=== PATIENT | female | born 1965 | race Caucasian/White ===

== ENCOUNTER → 2016-11-20 | Outpatient (CLI) | payer BC ==
--- NOTE | ~2016-11-20 | US128 ---
[id number] [facility] [address] [place], [place] [address] [id number] O MR#: [id number] #: [id number] NAME: DARNELL HERNANDEZ : 1965 SEX: F STUDY DATE/TIME: 11/20/2016 14:07 UNIT: [facility] ROOM: STUDY DESCRIPTION: Thyroid Attending Physician: Jelena Mora M.D. Referring Physician: Jelena Mora M.D. Ordering Physician: eJlena Mora M.D. Primary Care Physician: Jelena Mora M.D. MEDICAL IMAGING REPORT This report is preliminary unless electronic signature is present EXAM Thyroid ultrasound 11/20/2016 INDICATION Thyroid nodule on MRI 2 weeks ago. Ultrasound requested for further assessment. TECHNIQUE Sonographic imaging of the thyroid gland was performed. [facility] FINDINGS Right thyroid lobe measures 1.7 x 1.6 x 4.4 cm and the left measures 1.6 x 1.6 x 4.6 cm. Thyroid isthmus measures 3-4 mm. Echogenicity appears within normal limits. Vascularity within normal limits. There is a tiny area of heterogeneous thyroid tissue versus a small solid nodule in the anterior inferior lower pole right thyroid lobe measuring 3 mm. In the left thyroid lobe, there is a small colloid cyst with a scant amount of debris within it in the lower pole. It measures 6 x 4 mm. IMPRESSION 1. 6 x 4 mm minimally complicated colloid cyst in the left thyroid lobe appears to correspond to the finding on the recent MRI. 2. Tiny area of heterogeneous thyroid tissue versus a tiny solid nodule in the lower pole right thyroid lobe. 3. Followup ultrasound could be performed in 1 year for reassessment of stability. There are no nodules meeting size criteria for fine-needle aspiration at this time. Dictated by... Chi Coe M.D. THIS IS AN ELECTRONICALLY VERIFIED REPORT Chi Coe M.D. at 11/21/2016 11:20 AM CASEY/richard TD: 11/21/2016 09:33 JOB #: [id number] MEDICAL IMAGING REPORT Page 1 of 1 COPY
== END | disposition home or self-care (01) ==
LOC: CGUS 13:30
DX: E04.1 Nontoxic single thyroid nodule (principal)
CPT/HCPCS: 76536